=== PATIENT | female | born 1955 | race Hispanic/Latino ===

== ENCOUNTER → 2018-08-13 | Outpatient (CLI) | payer OTHER | END | disposition home or self-care (01) | LOC: OIH 14:56 | PROVIDERS: ATTEND Family Medicine | DX: Z13.6 Encounter for screening for cardiovascular disorders (principal) | CPT/HCPCS: 75571 ==

== ENCOUNTER → 2018-12-14 | Outpatient (CLI) | payer OTHER ==
[2018-12-14 10:53] LABS: INR 0.98 (0.85-1.15); PARTIAL THROMBOPLASTIN TIME 27.1 SEC (26.3-35.5); PROTHROMBIN TIME 10.3 SEC (9.6-11.6)
--- NOTE | 2018-12-14 11:20 | NUR ---
U/S GUIDED FINE NEEDLE ASPIRATION/BIOPSY RIGHT THYROID NODULE ORDERED. NOT DONE ULTRASOUND OF THE RIGHT THYROID PERFORMED BY CRYSTAL MADRID. DR. JARAMILLO VIEWED IMAGES AND PERFORMED ULTRASOUND OF RIGHT THYROID NODULE. DR JARAMILLO INFORMED PATIENT HE'S UNABLE TO REACH THE THYROID NODULE DUE TO THE LOCATION OF THE NODULE, HARD TO REACH, AND PROXIMITY TO THE CAROTID ARTERY AND NOT SAFE DO PROCEDURE. INFORMED PT/FAMILY TO CONTINUE MONITORING NODULE WITH REPEAT ULTRASOUNDS AND WATCH IF INCREASING IN SIZE. PATIENT DISCHARGED AMBULATORY STABLE, AAO X3 WITH NO C/O PAIN.
== END | disposition home or self-care (01) ==
LOC: RAH 09:59
PROVIDERS: ATTEND Internal Medicine
DX: E04.2 Nontoxic multinodular goiter (principal); E03.9 Hypothyroidism, unspecified
CPT/HCPCS: 36415; 76536; 85610; 85730

== ENCOUNTER → 2024-05-31 | Outpatient (CLI) | payer MEDICARE | END | disposition home or self-care (01) | LOC: RAH 14:17 | PROVIDERS: ATTEND Internal Medicine | DX: I34.0 Nonrheumatic mitral (valve) insufficiency (principal) | CPT/HCPCS: 93306 ==